=== PATIENT | female | born 1945 | race Caucasian/White ===

== ENCOUNTER → 2017-11-12 | Outpatient (CLI) | payer MEDICARE ==
--- NOTE | 2017-11-14 11:22 | MM ---
Reason for exam: screening (asymptomatic). History: Patient is nulliparous. Physical Findings: A clinical breast exam by your physician is recommended on an annual basis and results should be correlated with mammographic findings. MG 3D Screening Mammo W/Cad Bilateral CC and MLO view(s) were taken. The breast tissue is heterogeneously dense. This may lower the sensitivity of mammography. Stable benign calcifications. There is chronic nodularity bilaterally. No significant changes when compared with prior studies. ASSESSMENT: Benign, BI-RAD 2 RECOMMENDATION: Routine screening mammogram of both breasts in 1 year.
== END | disposition home or self-care (01) ==
LOC: RADMAMWWP 07:54
PROVIDERS: ATTEND Family Medicine
DX: Z12.31 Encounter for screening mammogram for malignant neoplasm of breast (principal)
CPT/HCPCS: 77063; 77067

== ENCOUNTER → 2019-01-14 | Outpatient (CLI) | payer MEDICARE ==
--- NOTE | 2019-01-15 08:33 | MM ---
Reason for exam: screening (asymptomatic). Last mammogram was performed 1 year and 2 months ago. History: Patient is postmenopausal, has history of other cancer at age 57, and is nulliparous. Physical Findings: A clinical breast exam by your physician is recommended on an annual basis and results should be correlated with mammographic findings. MG 3D Screening Mammo W/Cad Bilateral CC and MLO view(s) were taken. Prior study comparison: November 12, 2017, bilateral MG 3d screening mammo w/cad. There are scattered fibroglandular densities. There is chronic nodularity bilaterally. Benign secretory calcifications on the left. No significant changes when compared with prior studies. ASSESSMENT: Benign, BI-RAD 2 RECOMMENDATION: Routine screening mammogram of both breasts in 1 year.
== END | disposition home or self-care (01) ==
LOC: RADMAMWWP 07:17
PROVIDERS: ATTEND Family Medicine
DX: Z12.31 Encounter for screening mammogram for malignant neoplasm of breast (principal)
CPT/HCPCS: 77063; 77067

== ENCOUNTER → 2023-05-07 | Outpatient (CLI) | payer MEDICARE ==
--- NOTE | 2023-05-08 22:23 | MM ---
Reason for Exam: Screening (asymptomatic). Last mammogram was performed 4 year(s) and 4 month(s) ago. Patient History: Menarche at age 10. Patient has no children. Left ovary removed at age 57. Right ovary removed at age 57. Hysterectomy at age 57. Postmenopausal. Previous chemotherapy at age 56. Risk Values: Bisi 5 year model risk: 1.9%. NCI Lifetime model risk: 3.1%. Prior Study Comparison: 11/12/2017 Bilateral Screening Mammogram, [facility]. 01/14/2019 Bilateral Screening Mammogram, [facility]. Tissue Density: There are scattered fibroglandular densities. Findings: Analyzed By CAD. Benign bilateral secretory calcifications as well as chronic nodularity on the left. There is no suspicious group of microcalcifications or new suspicious mass in either breast. Overall Assessment: Benign, BI-RAD 2 Management: Screening Mammogram of both breasts in 1 year. . Patient should continue monthly self-breast exams. A clinical breast exam by your physician is recommended on an annual basis. This exam should not preclude additional follow-up of suspicious palpable abnormalities. Note on Bisi scores and lifetime risk: 1. A Bisi score greater than 3% is considered moderate risk. If this is the case, consider specialist referral to assess eligibility for a risk reducing agent. 2. If overall lifetime risk for the development of breast cancer is 20% or higher, the patient may qualify for future screening with alternating mammogram and breast MRI. Electronically signed and approved by: Deangelo Sandoval M.D. Radiologist
== END | disposition home or self-care (01) ==
LOC: RADMAMWWP 10:34
PROVIDERS: ATTEND Family Medicine
DX: Z12.31 Encounter for screening mammogram for malignant neoplasm of breast (principal); Z78.0 Asymptomatic menopausal state
CPT/HCPCS: 77063; 77067

== ENCOUNTER → 2023-06-13 | Outpatient (CLI) | payer MEDICARE ==
[2023-06-13 16:59] LABS: HCT 45.4 % (37.2-46.3); HGB 14.5 g/dL (12.0-15.0); MCH 31.3 pg (27.0-32.0); MCHC 31.9 g/dL (32.0-37.0); MCV 98.1 FL (80.0-97.0); Mean Platelet Volume 12.3 FL (9.5-12.2); NRBC Per 100 WBC 0 X 10*3/uL (0.00-0.01); Platelet Count 166 X 10*3/uL (140-440); RBC 4.63 X 10*6/uL (4.10-5.20); RDW 14.1 % (11.5-14.5); WBC 5.08 X 10*3/uL (4.50-10.00)
[2023-06-13 18:17] LABS: BUN/Creat Ratio 14.75 Ratio (12.00-20.00); Bilirubin, Conjugated 0.24 mg/dL (0.20-0.40); Bilirubin,Unconjugated 0.66 mg/dL (0.20-1.00); Blood Urea Nitrogen 17.7 mg/dL (9.0-27.0); Calcium 9.5 mg/dL (8.7-10.3); Carbon Dioxide 24.8 mmol/L (21.6-31.8); Chloride 105 mmol/L (96-109); Glucose 115 mg/dL (70-110); Sodium 142 mmol/L (135-145); Total Bilirubin 0.9 mg/dL (0.3-1.2)
== END | disposition home or self-care (01) ==
LOC: LABWHC1 08:35
PROVIDERS: ATTEND Internal Medicine Gastroenterology
DX: K76.0 Fatty (change of) liver, not elsewhere classified (principal)
CPT/HCPCS: 36415; 80048; 81596; 82248; 85027

== ENCOUNTER 2023-09-11 14:43 | Observation (INO) | payer MEDICARE ==
--- NOTE | 2023-09-11 17:12 | ED ---
Chest Pain HPI - General Chief Complaint: Chest Pain Stated Complaint: back pain/heart issues Time Seen by Provider: 09/11/23 16:10 Source: patient, RN notes reviewed, old records reviewed Mode of arrival: ambulatory Limitations: no limitations - History of Present Illness Initial Comments: This is a 78-year-old female to the ER today. This patient presents to the emergency room today overall not feeling well chest pain that started last night into today. For evaluation regards to chest pain comes and goes left-sided left-sided squeezing, when she went to bed last night she said she would come to the hospital today if her pain was consistent with the pain being a little worse when she woke up this morning but then went away, patient presents to the ER tonight with recurrence of this chest pain. Pain is left-sided squeezing in her back, she is on Eliquis for A-fib MD Complaint: chest pain -: days(s) Onset: during rest Pain Location: left chest Pain Radiation: back Severity: moderate Quality: tightness, heaviness Consistency: intermittent Improves With: nothing Worsens With: nothing Anginal Symptoms: dyspnea, sense of impending doom Other Symptoms: palpitations Treatments Prior to Arrival: none - Related Data Home Medications Medication Instructions Recorded Confirmed Levothyroxine Sodium [Synthroid] 88 mcg PO AC-BRKFST 09/11/23 09/11/23 Metoprolol Succinate (ER) [Toprol 50 mg PO HS 09/11/23 09/11/23 XL] Multivitamins, Thera [Multivitamin 1 tab PO DAILY 09/11/23 09/11/23 (formulary)] Rivaroxaban [Xarelto] 20 mg PO HS 09/11/23 09/11/23 Allergies Allergy/AdvReac Type Severity Reaction Status Date / Time No Known Allergies Allergy Verified 09/11/23 17:48 Review of Systems ROS Statement: Those systems with pertinent positive or pertinent negative responses have been documented in the HPI. ROS Other: All systems not noted in ROS Statement are negative. EKG Findings - EKG Comments: EKG Findings:: EKG is A-fib 83 QRS 82 QTc 440 - EKG Results: EKG: interpreted by MONICA Past Medical History Past Medical History: Atrial Fibrillation, Cancer, Thyroid Disorder History of Any Multi-Drug Resistant Organisms: None Reported Past Surgical History: Cholecystectomy, Hysterectomy Past Psychological History: No Psychological Hx Reported Smoking Status: Never smoker Past Alcohol Use History: Rare Past Drug Use History: None Reported General Exam Limitations: no limitations General appearance: alert, in no apparent distress, anxious Head exam: Present: atraumatic, normocephalic, normal inspection Eye exam: Present: normal appearance, PERRL, EOMI. Absent: scleral icterus, conjunctival injection, periorbital swelling ENT exam: Present: normal exam, mucous membranes moist Neck exam: Present: normal inspection. Absent: tenderness, meningismus, lymphadenopathy Respiratory exam: Present: normal lung sounds bilaterally. Absent: respiratory distress, wheezes, rales, rhonchi, stridor Cardiovascular Exam: Present: regular rate, normal rhythm, normal heart sounds. Absent: systolic murmur, diastolic murmur, rubs, gallop, clicks GI/Abdominal exam: Present: soft, normal bowel sounds. Absent: distended, tenderness, guarding, rebound, rigid Extremities exam: Present: normal inspection, full ROM, normal capillary refill. Absent: tenderness, pedal edema, joint swelling, calf tenderness Back exam: Present: normal inspection Neurological exam: Present: alert, oriented X3, CN II-XII intact Psychiatric exam: Present: normal affect, normal mood Skin exam: Present: warm, dry, intact, normal color. Absent: rash Course Vital Signs 09/11/23 14:46 Temperature 97.8 F Pulse Rate 64 Respiratory 16 Rate Blood Pressure 133/82 O2 Sat by Pulse 95 Oximetry - Reevaluation(s) Reevaluation #1: 09/11/23 17:11 Medical records reviewed Reevaluation #2: 09/11/23 17:11 Patient still with chest pain here in the ER Reevaluation #3: 09/11/23 19:04 Patient informed of results and questions answered Studies chest x-ray and CTA chest negative for acute disease Reevaluation #4: Was pt. sent in by a medical professional or institution (, PA, HOOP MACHINE OPERATOR, urgent care, hospital, or retirement...) When possible be specific @ -no Did you speak to anyone other than the patient for history (EMS, parent, family, police, friend...)? What history was obtained from this source @ -no Did you review nursing and triage notes (agree or disagree)? Why? @ -agree Are old charts reviewed (outside hosp., previous admission, EMS record, old EKG, old radiological studies, urgent care reports/EKG's, retirement records)? Report findings @ -yes Differential Diagnosis (chest pain, altered mental status, abdominal pain women, abdominal pain men, vaginal bleeding, weakness, fever, dyspnea, syncope, headache, dizziness, GI bleed, back pain, seizure, CVA, palpatations, mental health, musculoskeletal)? @ -prior EKG interpreted by me (3pts min.). @ -yes X-rays interpreted by me (1pt min.). @ -yes negative for acute disease CT interpreted by me (1pt min.). @ -Yes negative for acute disease U/S interpreted by me (1pt. min.). @ -no What testing was considered but not performed or refused? (CT, X-rays, U/S, labs)? Why? @ -none What meds were considered but not given or refused? Why? @ -none Did you discuss the management of the patient with other professionals (professionals i.e. , PA, HOOP MACHINE OPERATOR, lab, RT, psych nurse, renal social worker, associate professor physician, teacher, seismology technical officer, director case management)? Give summary @ -no Was smoking cessation discussed for >3mins.? @ -no Was critical care preformed (if so, how long)? @ -yes31 Were there social determinants of health that impacted care today? How? (Homelessness, low income, unemployed, alcoholism, drug addiction, transportation, low edu. Level, literacy, decrease access to med. care, skilled nursing, rehab)? @ -none Was there de-escalation of care discussed even if they declined (Discuss DNR or withdrawal of care, Hospice)? DNR status @ -no What co-morbidities impacted this encounter? (DM, HTN, Smoking, COPD, CAD, Cancer, CVA, ARF, Chemo, Hep., AIDS, mental health diagnosis, sleep apnea, morbid obesity)? @ -none Was patient admitted / discharged? Hospital course, mention meds given and route, prescriptions, significant lab abnormalities, going to OR and other pertinent info. @ - 78 female to the ED co chest pain and consistent chest pain, patient is having persistent chest pain here in the ER and will admit for chest pain observation Admitted chest pain Undiagnosed new problem with uncertain prognosis? @ -no Drug Therapy requiring intensive monitoring for toxicity (Heparin, Nitro, Insulin, Cardizem)? @ -no Were any procedures done? @ -no Diagnosis/symptom? @ - Acute, or Chronic, or Acute on Chronic? @ -Acute Uncomplicated (without systemic symptoms) or Complicated (systemic symptoms)? @ -Complicated Side effects of treatment? @ -no Exacerbation, Progression, or Severe Exacerbation? @ -exacerbation Poses a threat to life or bodily function? How? (Chest pain, [place], NH, pneumonia, PE, COPD, DKA, ARF, appy, cholecystitis, CVA, Diverticulitis, Homicidal, Remy icidal, threat to staff... and all critical care pts) @ -yes extreme of age Reevaluation #5: Differential Chest Pain: Stable Angina, Unstable Angina, STEMI, NSTEMI Aortic Dissection, Pneumothorax, Musculoskeletal, Esophageal Spasm GERD, Cholecystitis, Pancreatitis, Zoster, this is not meant to be an all-inclusive list. - Consultations Consultation #1: Admitting physicians who agreed to admit this patient Chest Pain MDM - MDM 78 female to the ED co chest pain and consistent chest pain, patient is having persistent chest pain here in the ER and will admit for chest pain observation Critical Care Time Critical Care Time: Yes Total Critical Care Time: 31 Disposition Clinical Impression: Chest pain, Atypical chest pain Disposition: ADMITTED IP TO THIS HOSP Condition: Fair Is patient prescribed a controlled substance at d/c from ED?: No Time of Disposition: 19:00
[2023-09-11 17:26] LABS: Basophils # (A) 0.1 k/uL (0-0.2); Basophils % (A) 1 %; Eosinophils # (A) 0.1 k/uL (0-0.7); Eosinophils % (A) 2 %; HCT 43.6 % (34.0-46.0); HGB 13.8 gm/dL (11.4-16.0); Lymphocytes # (A) 1.3 k/uL (1.0-4.8); Lymphocytes % (A) 27 %; MCHC 31.7 g/dL (31.0-37.0); MCV 97.8 fL (80.0-100.0); Mean Platelet Volume 8.1; Monocytes # (A) 0.4 k/uL (0-1.0); Monocytes % (A) 7 %; Neutrophils # (A) 2.8 k/uL (1.3-7.7); Neutrophils % (A) 59 %; Platelet Count 153 k/uL (150-450); RBC 4.46 m/uL (3.80-5.40); RDW 13.9 % (11.5-15.5); WBC 4.8 k/uL (3.8-10.6)
--- NOTE | 2023-09-11 17:32 | XR ---
EXAMINATION TYPE: XR chest 1V portable DATE OF EXAM: 09/11/2023 COMPARISON: None INDICATION: Chest pain TECHNIQUE: Single frontal view of the chest is obtained. FINDINGS: The heart size is normal. The pulmonary vasculature is normal. The lungs are clear. IMPRESSION: 1. No acute pulmonary process.
[2023-09-11 17:43] LABS: INR 1.1 (<1.2); Partial Thromboplastin Time 27.5 sec (22.0-30.0); Prothrombin Time 11.9 sec (10.0-12.5)
[2023-09-11] MEDS: SODIUM CHLORIDE 0.9% 1,000 ML IV STA (17:48)
[2023-09-11 17:56] LABS: ALT 16 U/L (4-34); AST 21 U/L (14-36); African American GFR (CKD) 73 (>60 ml/min/1.73 sqM); Albumin 3.8 g/dL (3.5-5.0); Alkaline Phosphatase 97 U/L (38-126); Anion Gap 5 mmol/L; Blood Urea Nitrogen 17 mg/dL (7-17); Calcium 8.6 mg/dL (8.4-10.2); Carbon Dioxide 27 mmol/L (22-30); Chloride 108 mmol/L (98-107); Glucose 119 mg/dL (74-99); Lipase 90 U/L (23-300); Magnesium 1.9 mg/dL (1.6-2.3); Non-African American GFR(CKD) 63 (>60 ml/min/1.73 sqM); Potassium 4.3 mmol/L (3.5-5.1); Sodium 140 mmol/L (137-145); Total Bilirubin 1.5 mg/dL (0.2-1.3); Total Protein 6.7 g/dL (6.3-8.2)
[2023-09-11 18:04] LABS: NT-Pro-B-Type Natriuretic Pept 905 pg/mL
[2023-09-11] MEDS ORDERED: MORPHINE SULFATE 4 MG/ML SYRINGE IV PRN (19:14)
[2023-09-11] MEDS ORDERED: NALOXONE 0.4 MG/ML 1 ML VIAL IV PRN (19:14)
[2023-09-11] MEDS ORDERED: ONDANSETRON 4 MG/2 ML VIAL IVP PRN (19:14)
--- NOTE | 2023-09-11 19:25 | CT ---
EXAMINATION TYPE: CT angio chest CT DLP: 327.4 mGycm, Automated exposure control for dose reduction was used. DATE OF EXAM: 09/11/2023 7:17 PM COMPARISON: Chest radiograph from same day. CLINICAL INDICATION:Female, 78 years old with history of cp; chest pain TECHNIQUE/CONTRAST: CTA scan of the thorax is performed with IV Contrast, patient injected with 100 ml mL of Isovue 370, MIP images are created and reviewed these are created on a separate workstation.. FINDINGS: Pulmonary Artery: There is no evidence for a filling defect within the pulmonary vasculature to sugge st acute pulmonary embolism. The pulmonary artery is of normal size. Lungs/Pleura: Pleural based scarring is noted in the lung bases. No pleural effusion or pneumothorax. Airway: Large airways are patent. Heart: Heart is within normal limits for size. Vasculature: No evidence of aortic aneurysm. Mediastinum: No gross evidence of adenopathy. Musculoskeletal: Moderate degenerative disc disease changes are present throughout the thoracolumbar spine. Soft Tissues: Unremarkable. Lower neck: No significant findings. Upper Abdomen: No significant findings. IMPRESSION: No evidence of pulmonary embolism or acute process.
[2023-09-11] MEDS: SODIUM CHLORIDE 0.9% 1,000 ML IV SCH (20:20)
[2023-09-12] MEDS: RIVAROXABAN 20 MG TAB PO SCH (00:51)
[2023-09-12] MEDS: METOPROLOL SUCCINATE (ER) 50 MG TAB.ER.24H PO SCH (00:51)
[2023-09-12] MEDS: LEVOTHYROXINE 88 MCG TAB PO SCH (05:22)
[2023-09-12] MEDS: MULTIVITAMINS, THERA 1 EACH TAB PO SCH (08:38)
[2023-09-12] MEDS: ACETAMINOPHEN TAB 325 MG TAB PO PRN (09:59)
[2023-09-12 10:11] LABS: Basophils # (A) 0.04 X 10*3/uL (0.00-0.10); Basophils % (A) 0.8 %; Eosinophils # (A) 0.07 X 10*3/uL (0.04-0.35); Eosinophils % (A) 1.4 %; HCT 41.8 % (37.2-46.3); HGB 13.2 g/dL (12.0-15.0); Lymphocytes # (A) 1.51 X 10*3/uL (0.90-5.00); Lymphocytes % (A) 29.8 %; MCH 30.6 pg (27.0-32.0); MCHC 31.6 g/dL (32.0-37.0); Mean Platelet Volume 11.4 FL (9.5-12.2); Monocytes # (A) 0.59 X 10*3/uL (0.20-1.00); Monocytes % (A) 11.7 %; NRBC Per 100 WBC 0 X 10*3/uL (0.00-0.01); Neutrophils # (A) 2.83 X 10*3/uL (1.80-7.70); Neutrophils % (A) 55.9 %; Platelet Count 172 X 10*3/uL (140-440); RBC 4.31 X 10*6/uL (4.10-5.20); RDW 14.1 % (11.5-14.5); WBC 5.06 X 10*3/uL (4.50-10.00)
[2023-09-12] MEDS ORDERED: AMINOPHYLLINE 500 MG/20 ML VIAL IV PRN (10:23)
[2023-09-12] MEDS ORDERED: REGADENOSON 0.4 MG/5 ML SYRINGE IV PRN (10:23)
[2023-09-12] MEDS ORDERED: CAFFEINE CITRATE 60 MG/3 ML VIAL IV PRN (10:23)
[2023-09-12 10:25] LABS: ALT 12 U/L (8-44); AST 14 U/L (13-35); Albumin 3.7 g/dL (3.8-4.9); Albumin/Globulin Ratio 1.61 Ratio (1.60-3.17); Alkaline Phosphatase 98 U/L (41-126); BUN/Creat Ratio 14.36 Ratio (12.00-20.00); Blood Urea Nitrogen 15.8 mg/dL (9.0-27.0); Calcium 8.6 mg/dL (8.7-10.3); Chloride 108 mmol/L (96-109); Globulin 2.3 g/dL (1.6-3.3); Glucose 109 mg/dL (70-110); Lipase 31 U/L (14-63); Phosphorus 3.5 mg/dL (2.4-5.1); Potassium 4.3 mmol/L (3.5-5.5); Sodium 144 mmol/L (135-145); Total Bilirubin 0.8 mg/dL (0.3-1.2)
--- NOTE | 2023-09-12 11:37 | P.CRDCN ---
History of Present Illness History of present illness: HISTORY OF PRESENT ILLNESS: This is a 78-year-old female with a past medical history significant for paroxysmal atrial fibrillation, hypertension, moderate to severe mitral regurgitation and hypothyroidism. Patient follows in the office with Dr. Lawson. We have been asked to see the patient in consultation for chest pain. Patient examined at the bedside. Patient states she began to have some chest discomfort on Sunday. She states the pain spread all across her chest as the day went on. She also reports having some discomfort in her arm. She states yesterday when she woke up she continued to have chest pain along with pain down both sides of her abdomen. She also reports having a headache. She states that she took a nap and when she woke up she then had back pain. This morning she denies any chest pain or pressure. She is complaining of back pain and neck pain at the t les of examination. She reports that she did feel short of breath yesterday as well. Her is at the bedside and states that she was coughing yesterday. She denied any fever. She does report soreness with chest auscultation from the stethoscope. The patient does report that she saw her primary supply controller at the beginning of this month and was told her valvular disease had progressed to moderate to severe mitral regurgitation as she was told previously it was mild to moderate. She states that she has had a lot of anxiety due to this. DIAGNOSTICS: - EKG reveals atrial fibrillation with controlled ventricular rate - Chest xray negative for acute process - Chest CTA: Negative for pulmonary embolism. - Laboratory data: WBC 5.06. Hemoglobin 13.2. Platelet count 172. Sodium 144. Potassium 4.3. BUN 15. Creatinine 1.1. Troponin negative x 2. proBNP 905. - Current home cardiac medications include Xarelto 20 mg at night and metoprolol succinate 50 mg at night. - Most recent echocardiogram obtained in July 2023 reveals ejection fraction 50 to 55%, mild concentric LVH, moderate to severe mitral regurgitation and moderate tricuspid regurgitation. - Patient underwent Lexiscan stress test in September 2017 which was negative for ischemia - Cardiac catheterization history: Patient denies REVIEW OF SYSTEMS: At the time of my exam: CONSTITUTIONAL: Denies fever or chills. HEENT: Denies blurred vision, vision changes, or eye pain. Denies hemoptysis CARDIOVASCULAR: Denies chest pain. Denies orthopnea. Denies PND. Denies palpitations RESPIRATORY: Denies shortness of breath. GASTROINTESTINAL: Denies abdominal pain. Denies nausea or vomiting. HEMATOLOGIC: Denies bleeding disorders. GENITOURINARY: Denies any blood in urine. SKIN: Denies pruitis. Denies rash. PHYSICAL EXAM: VITAL SIGNS: Reviewed. GENERAL: Well-developed in no acute distress. HEENT: Head is normocephalic. Pupils are equal, round. Sclerae anicteric. Mucous membranes of the mouth are moist. Neck supple. No JVD or thyromegaly LUNGS: Respirations even and unlabored. Lungs essentially clear to auscultation bilaterally. HEART: Regular rate and rhythm. S1 and S2 heard. Systolic murmur noted ABDOMEN: Soft. Nondistended. Nontender. EXTREMITIES: Normal range of motion. No clubbing or cyanosis. Peripheral pulses intact. No lower extremity edema NEUROLOGIC: Awake and alert. Oriented x 3. ASSESSMENT: Chest pain Moderate to severe mitral regurgitation Paroxysmal atrial fibrillation Hypertension Hypothyroidism PLAN: An acute coronary event has been ruled out Resume home cardiac medications No need to repeat echocardiogram as this was performed in the office last month Patient to undergo Lexiscan stress test today If negative, she may be discharged home from a cardiac standpoint Further recommendations pending patient course Nurse practitioner note has been reviewed by physician. Signing provider agrees with the documented findings, assessment, and plan of care documented by FUSE COILER as a scribe. Past Medical History Past Medical History: Atrial Fibrillation, Cancer, Thyroid Disorder Additional Past Medical History / Comment(s): Cervical CA. leaky heart valve (mitral) History of Any Multi-Drug Resistant Organisms: None Reported Past Surgical History: Cholecystectomy, Hysterectomy, Tonsillectomy Past Anesthesia/Blood Transfusion Reactions: No Reported Reaction Past Psychological History: No Psychological Hx Reported Smoking Status: Never smoker Past Alcohol Use History: Rare Past Drug Use History: None Reported Medications and Allergies Home Medications Medication Instructions Recorded Confirmed Type Levothyroxine Sodium [Synthroid] 88 mcg PO AC-BRKFST 09/11/23 09/11/23 History Metoprolol Succinate (ER) [Toprol 50 mg PO HS 09/11/23 09/11/23 History XL] Multivitamins, Thera [Multivitamin 1 tab PO DAILY 09/11/23 09/11/23 History (formulary)] Rivaroxaban [Xarelto] 20 mg PO HS 09/11/23 09/11/23 History Allergies Allergy/AdvReac Type Severity Reaction Status Date / Time No Known Allergies Allergy Verified 09/11/23 17:48 Physical Exam Vitals: Vital Signs Temp Pulse Pulse Resp BP BP Pulse Ox 09/12/23 07:00 97.8 F 66 18 113/78 94 L 09/12/23 01:57 98.2 F 61 16 101/66 93 L 09/11/23 14:46 97.8 F 64 16 133/82 95 Intake and Output 09/11/23 09/12/23 09/12/23 22:59 06:59 14:59 Other: # Voids 2 Weight 86.183 kg Results 09/12/23 06:50 09/12/23 06:50 Cardiac Enzymes 09/11/23 09/11/23 Range/Units 16:50 16:50 AST 21 (14-36) U/L Troponin I <0.012 (0.000-0.034) ng/mL Coagulation 09/11/23 Range/Units 16:50 PT 11.9 (10.0-12.5) sec APTT 27.5 (22.0-30.0) sec CBC 09/11/23 Range/Units 16:50 WBC 4.8 (3.8-10.6) k/uL RBC 4.46 (3.80-5.40) m/uL Hgb 13.8 (11.4-16.0) gm/dL Hct 43.6 (34.0-46.0) % Plt Count 153 (150-450) k/uL Comprehensive Metabolic Panel 09/11/23 Range/Units 16:50 Sodium 140 (137-145) mmol/L Potassium 4.3 (3.5-5.1) mmol/L Chloride 108 H (98-107) mmol/L Carbon Dioxide 27 (22-30) mmol/L BUN 17 (7-17) mg/dL Creatinine 0.87 (0.52-1.04) mg/dL Glucose 119 H (74-99) mg/dL Calcium 8.6 (8.4-10.2) mg/dL AST 21 (14-36) U/L ALT 16 (4-34) U/L Alkaline Phosphatase 97 (38-126) U/L Total Protein 6.7 (6.3-8.2) g/dL Albumin 3.8 (3.5-5.0) g/dL Current Medications Generic Name Dose Route Start Last Admin Trade Name Freq PRN Reason Stop Dose Admin Sodium Chloride 1,000 mls @ 20 mls/hr 09/11/23 19:15 09/11/23 20:20 Saline 0.9% IV 20 mls/hr .Q24H CECILIO Administration Levothyroxine Sodium 88 mcg 09/12/23 07:30 09/12/23 05:22 Levothyroxine 88 Mcg Tab PO 88 mcg AC-BRKFST CECILIO Administration Metoprolol Succinate 50 mg 09/12/23 00:30 09/12/23 00:51 Metoprolol Succinate (Er) 50 Mg Tab.Er.24h PO 50 mg HS CECILIO Administration Morphine Sulfate 4 mg 09/11/23 19:14 Morphine Sulfate 4 Mg/Ml Syringe IV Q4HR PRN Severe Pain (Scale 7 to 10) Multivitamins 1 each 09/12/23 09:00 09/12/23 08:38 Multivitamins, Thera 1 Each Tab PO 1 each DAILY CECILIO Administration Naloxone HCl 0.2 mg 09/11/23 19:14 Naloxone 0.4 Mg/Ml 1 Ml Vial IV Q2M PRN Opioid Reversal Ondansetron HCl 4 mg 09/11/23 19:14 Ondansetron 4 Mg/2 Ml Vial IVP Q8HR PRN Nausea And Vomiting Rivaroxaban 20 mg 09/12/23 00:30 09/12/23 00:51 Rivaroxaban 20 Mg Tab PO 20 mg HS CECILIO Administration Protocol Intake and Output 09/11/23 09/12/23 09/12/23 22:59 06:59 14:59 Other: # Voids 2 Weight 86.183 kg 09/11/23 16:50 09/11/23 16:50
[2023-09-12 12:36] LABS: Magnesium 1.9 mg/dL (1.5-2.4)
--- NOTE | 2023-09-12 13:08 | CA ---
Lexiscan Nuclear Stress Test Report Name: Mabel Mcnally Exam Date: 09/12/2023 12:02 Exam Location: [facility] Ht (in): 64 Wt (lb): 190 BSA: 1.91 Ordering Phys: Myrna Coburn Referring Phys: Technologist: Ashanti Marquis RDCS Age: 78 Gender: F : 1945 Procedure CPT: Indications: Reflex order-Stress test ICD-10 Codes: Patient History: CP, MIKHAIL, PALP, FAMILY HX Medications: SEE CHART Meds past 24 hrs: Pretest Chest Pain: STRESS TEST Lexiscan Protocol Exercise Duration (min:sec): 01:[address] Depressions (mm): Angina Score: Berman Score: Resting HR (bpm): 84 Peak HR (bpm): 109 Resting BP (mmHg): 101 / 74 Peak BP (mmHg): 180 / 95 MPHR: 140 Target HR: 119 % MPHR: 78 METS: 1.0 Total Dose: Peak Dose: Atropine: Double Product: 29872 BP Response: Stress Termination: END OF DOSE Stress Symptoms: No chest pain or symptoms Stress Summary: ECG ANALYSIS Resting ECG: Stress ECG: CONCLUSIONS Nondiagnostic electrocardiogram stress testing Please follow-up on the Cardiolite portion on the separate report from radiology department Dr. Delon Snyder MD (Electronically Signed) Final Date: 12 September 2023 13:07
--- NOTE | 2023-09-12 13:28 | P.HPIM ---
History of Present Illness H&P Date: 09/12/23 History of present illness; patient is a 78-year-old lady with past medical history noted for atrial fibrillation on Xarelto who presented to the ER for chest pain. Patient said that she was all right 2 days ago when he started having chest pain. Chest pain was left-sided, intermittent, squeezing in nature, nonradiating, not associate with any shortness of breath. There were no aggravating or relieving episodes of chest pain. Chest pain was intermittent and resolved yesterday but came back last night. There was no complaint of shortness of breath. No complaint nausea, vomiting, pain. Patient denies any orthopnea or PND. There is no complaint of lightheaded or dizziness. Because of chest pain, patient came to the ER Initial lab work done in the ER showed WBC 4.8, hemoglobin 13.8, platelet count 153, D-dimer 0.93, sodium 140, potassium 4.3, BUN 17, creatinine 0.87, glucose 119, bilirubin 1.5 troponin 0.012 EKG done in the ER showed heart rate of 83, irregular in rhythm, no ST segment elevation or depression seen, no T-wave inversions seen. Chest x-ray done in the ER showed no acute cardiopulmonary process CTA chest done showed no PE Patient admitted to internal medicine service REVIEW OF SYSTEMS: CONSTITUTIONAL: No fever, no malaise, no fatigue. HEENT: No recent visual problems or hearing problems. Denied any sore throat. CARDIOVASCULAR: As mentioned above PULMONARY: As mentioned above GASTROINTESTINAL: No diarrhea, no nausea, no vomiting, no abdominal pain. NEUROLOGICAL: No headaches, no weakness, no numbness. HEMATOLOGICAL: Denies any bleeding or petechiae. GENITOURINARY: Denies any burning micturition, frequency, or urgency. MUSCULOSKELETAL/RHEUMATOLOGICAL: Denies any joint pain, swelling, or any muscle pain. ENDOCRINE: Denies any polyuria or polydipsia. The rest of the 14-point review of systems is negative. PHYSICAL EXAMINATION: GENERAL: The patient is alert and oriented x3, not in any acute distress. Well developed, well nourished. HEENT: Pupils are round and equally reacting to light. EOMI. No scleral icterus. No conjunctival pallor. Normocephalic, atraumatic. No pharyngeal erythema. No thyromegaly. CARDIOVASCULAR: S1 and S2 present. No murmurs, rubs, or gallops. PULMONARY: Chest is clear to auscultation, no wheezing or crackles. ABDOMEN: Soft, nontender, nondistended, normoactive bowel sounds. No palpable organomegaly. MUSCULOSKELETAL: No joint swelling or deformity. EXTREMITIES: No cyanosis, clubbing, or pedal edema. NEUROLOGICAL: Gross neurological examination did not reveal any focal deficits. SKIN: No rashes. Assessment and plan Chest pain, rule out acute coronary syndrome Hypertension Hyperlipidemia Thyroidism Chronic atrial fibrillation Monitor vital signs Monitor CBC Monitor CMP Continue telemetry monitoring Trend troponins Continue Xarelto Resume Toprol Resume Synthroid Cardiology consulted Labs and medication were reviewed.. Continue same treatment. Continue with symptomatic treatment. Resume home medication. Monitor labs and vitals. DVT and GI prophylaxis. Further recommendations as per clinical course of the patient Dictation was produced using [employer] dictation software. please excuse any grammatical, word or spelling errors. Past Medical History Past Medical History: Atrial Fibrillation, Cancer, Thyroid Disorder Additional Past Medical History / Comment(s): Cervical CA. leaky heart valve (mitral) History of Any Multi-Drug Resistant Organisms: None Reported Past Surgical History: Cholecystectomy, Hysterectomy, Tonsillectomy Past Anesthesia/Blood Transfusion Reactions: No Reported Reaction Past Psychological History: No Psychological Hx Reported Smoking Status: Never smoker Past Alcohol Use History: Rare Past Drug Use History: None Reported Medications and Allergies Home Medications Medication Instructions Recorded Confirmed Type Levothyroxine Sodium [Synthroid] 88 mcg PO AC-BRKFST 09/11/23 09/11/23 History Metoprolol Succinate (ER) [Toprol 50 mg PO HS 09/11/23 09/11/23 History XL] Multivitamins, Thera [Multivitamin 1 tab PO DAILY 09/11/23 09/11/23 History (formulary)] Rivaroxaban [Xarelto] 20 mg PO HS 09/11/23 09/11/23 History Allergies Allergy/AdvReac Type Severity Reaction Status Date / Time No Known Allergies Allergy Verified 09/11/23 17:48 Physical Exam Vitals: Vital Signs Temp Pulse Pulse Resp BP BP Pulse Ox 09/12/23 07:00 97.8 F 66 18 113/78 94 L 09/12/23 01:57 98.2 F 61 16 101/66 93 L 09/11/23 14:46 97.8 F 64 16 133/82 95 Intake and Output 09/11/23 09/12/23 09/12/23 22:59 06:59 14:59 Other: # Voids 2 Weight 86.183 kg Results CBC & Chem 7: 09/11/23 16:50 09/11/23 16:50 Labs: Abnormal Lab Results - Last 24 Hours (Table) 09/11/23 09/11/23 Range/Units 16:50 16:50 D-Dimer 0.93 H (<0.60) mg/L FEU Chloride 108 H (98-107) mmol/L Glucose 119 H (74-99) mg/dL Total Bilirubin 1.5 H (0.2-1.3) mg/dL Thrombosis Risk Factor Assmnt - Choose All That Apply Any of the Below Risk Factors Present?: Yes Each Factor Represents 1 point: Obesity (BMI >25) Each Risk Factor Represents 3 Points: Age 75 years or older Thrombosis Risk Factor Assessment Total Risk Factor Score: 4 Thrombosis Risk Factor Assessment Level: Moderate Risk
--- NOTE | 2023-09-12 13:29 | NM ---
EXAMINATION TYPE: NM stress lexiscan cardiolite DATE OF EXAM: 09/12/2023 COMPARISON: NONE CLINICAL INDICATION: Female, 78 years old with history of CP; TECHNIQUE: After the intravenous administration of 10.8 mCi Tc 99m Sestamibi - Cardiolite resting SP ECT images acquired 45 minutes post injection. The patient received 0.4mg Lexiscan, 25.4 mCi Tc 99m Sestamibi - Stress images obtained [address] injection FINDINGS: Review of stress and rest SPECT images demonstrates dominantly fixed defect in the region of the card iac apex however there are surrounding areas of reversibility. Correlate clinically. Gated analysis s hows normal wall motion with an estimated left ventricular ejection fraction of 83 %. IMPRESSION: Small amount of reversible ischemia surrounding an area of fixed defect within the region of the card iac apex.
[2023-09-12] MEDS ORDERED: ALPRAZolam 0.25 MG TAB PO PRN (14:33)
[2023-09-12] MEDS ORDERED: ALPRAZolam 0.5 MG TAB PO PRN (14:33)
[2023-09-12] MEDS ORDERED: NITROGLYCERIN SL TABS 0.4 MG TAB SUBLINGUAL PRN (14:33)
[2023-09-13] MEDS: SODIUM CHLORIDE 0.9% 1,000 ML in EMPTY BAG 1 BAG IV SCH (00:18)
[2023-09-13] MEDS: ASPIRIN 325 MG TAB PO ONE (05:46)
[2023-09-13] MEDS: ATORVASTATIN 80 MG TAB PO ONE (05:46)
[2023-09-13 05:59] LABS: Glucose,Whole Blood 145 mg/dL (70-110)
[2023-09-13 06:13] VITALS: RESP 16
[2023-09-13] MEDS ORDERED: HEPARIN SODIUM,PORCINE (1 ML) 2,500 UNIT in SODIUM CHLORIDE 0.9% 250 ML IRRIGATION PRN (07:00)
[2023-09-13] MEDS ORDERED: HEPARIN SODIUM,PORCINE 10,000 UNIT in SODIUM CHLORIDE 0.9% 1,000 ML IRRIGATION PRN (07:00)
[2023-09-13 07:27] VITALS: BP 121/81; PULSE 74; TEMP 97.2
[2023-09-13] MEDS ORDERED: RIVAROXABAN 20 MG TAB PO SCH (21:00)
== END 2023-09-13 08:31 | disposition left against medical advice (07) ==
LOC: EC 14:43 → 6NMEDSUR 19:14
PROVIDERS: ADMIT Hospitalist; ATTEND Hospitalist
DX: R07.89 Other chest pain (principal); I48.0 Paroxysmal atrial fibrillation; I10 Essential (primary) hypertension; E03.9 Hypothyroidism, unspecified; I34.0 Nonrheumatic mitral (valve) insufficiency; E78.5 Hyperlipidemia, unspecified; Z85.41 Personal history of malignant neoplasm of cervix uteri; Z79.01 Long term (current) use of anticoagulants; Z79.890 Hormone replacement therapy; Z79.899 Other long term (current) drug therapy; Z53.29 Procedure and treatment not carried out because of patient's decision for other reasons
CPT/HCPCS: 96361 ×3; 96360; 99285; 36415; 93005; 93017; 85379; 83880; 80053 ×2; 83690 ×2; 83735 ×2; 84100; 84484 ×2; 85025 ×2; 85610; 85730; 71045; 71275; 78452; G0378 ×3; A9500; J2785; Q9967

== ENCOUNTER → 2023-12-12 | Outpatient (CLI) | payer MEDICARE ==
[2023-12-12 15:23] LABS: ALT 12 U/L (8-44); AST 17 U/L (13-35); Albumin/Globulin Ratio 1.43 Ratio (1.60-3.17); Alkaline Phosphatase 113 U/L (41-126); BUN/Creat Ratio 15.45 Ratio (12.00-20.00); Calcium 9.4 mg/dL (8.7-10.3); Carbon Dioxide 24.8 mmol/L (21.6-31.8); Chloride 109 mmol/L (96-109); Globulin 2.8 g/dL (1.6-3.3); Glucose 152 mg/dL (70-110); Potassium 5.4 mmol/L (3.5-5.5); Sodium 143 mmol/L (135-145); Total Protein 6.8 g/dL (6.2-8.2)
[2023-12-12 15:46] LABS: HCT 43.6 % (37.2-46.3); HGB 14.2 g/dL (12.0-15.0); MCH 31.4 pg (27.0-32.0); MCHC 32.6 g/dL (32.0-37.0); MCV 96.5 FL (80.0-97.0); Mean Platelet Volume 11.5 FL (9.5-12.2); NRBC Per 100 WBC 0 X 10*3/uL (0.00-0.01); Platelet Count 196 X 10*3/uL (140-440); RBC 4.52 X 10*6/uL (4.10-5.20); RDW 13.9 % (11.5-14.5); WBC 5.17 X 10*3/uL (4.50-10.00)
== END | disposition home or self-care (01) ==
LOC: LABWHC1 12:53
PROVIDERS: ATTEND Internal Medicine Gastroenterology
DX: K76.0 Fatty (change of) liver, not elsewhere classified (principal)
CPT/HCPCS: 36415; 80053; 85027